=== PATIENT | male | born 1995 | race African-American/Black ===

== ENCOUNTER 2017-05-27 14:12 | Emergency (ER) | payer MEDICAID ==
[~2017-05-27] VITALS: Ht 180.3 cm; Wt 109.0 kg
[2017-05-27 14:59] VITALS: BP 129/77
[2017-05-27] MEDS ORDERED: HYDROCODONE/ACETAMINOPHEN 5/325MG TABLET PO ONE (17:30)
== END 2017-05-27 19:15 | disposition home or self-care (01) ==
LOC: ER 14:12 → EDSEX 14:12 → ER 19:15
DX: S62.300A Unspecified fracture of second metacarpal bone, right hand, initial encounter for closed fracture (principal); X58.XXXA Exposure to other specified factors, initial encounter; Y93.89 Activity, other specified; Y92.89 Other specified places as the place of occurrence of the external cause; Y99.8 Other external cause status
CPT/HCPCS: 29125; 73110; 73130; 99284